=== PATIENT | male | born 1945 | race Caucasian/White ===

== ENCOUNTER → 2023-09-13 16:13 | Outpatient (REF) | payer MEDICARE, OTHER, SELFPAY ==
[2023-09-13 17:54] LABS: D-Dimer 0.44 ug/mlFEU (0.00-0.50)
== END ==
LOC: RAD 16:13
PROVIDERS: ATTENDING PHYSICIAN Internal Medicine Hematology & Oncology
DX: I82.91 Chronic embolism and thrombosis of unspecified vein (principal); M79.605 Pain in left leg
CPT/HCPCS: 36415; 85379; 93971